=== PATIENT | male | born 1940 | race Caucasian/White ===

== ENCOUNTER 2021-02-16 23:23 | Emergency (ER) | payer MEDICARE, OTHER ==
[~2021-02-16] VITALS: Ht 175.3 cm; Wt 66.7 kg
--- NOTE | 2021-02-16 23:41 | ED General ---
General Chief Complaint: Respiratory Problems Stated Complaint: SHORT OF BREATHE History of Present Illness Date Seen by Provider: Feb 16, 2021 Time Seen by Provider: 23:37 Initial Comments 81-year-old male who comes in with a feeling of shortness of breath. Patient reports that he was laying down to go to bed and felt like he can breathe through his CPAP machine. Patient reports he was then attempted to go to sleep and felt like he Is taking slower and less shallow breaths and it scared him. He is in presented to the ER for evaluation. Upon presentation to the ER he has no symptoms. Patient has no chest pain, fever, chills, cough. No complaints of congestion. Allergies and Home Medications Allergies Coded Allergies: bee venom protein (honey bee) (Verified Allergy, Unknown, 02/16/21) Home Medications Ferrous Sulfate 325 Mg Tablet, 325 MG PO TID, (Reported) Metoprolol Tartrate 50 Mg Tablet, 50 MG PO DAILY, (Reported) Omeprazole Magnesium 10 Mg Suspdr.pkt, 20 MG PO BID, (Reported) Potassium Chloride 20 Meq Tablet.er, 20 MEQ PO UD, (Reported) Patient Home Medication List Home Medication List Reviewed: Yes Review of Systems Review of Systems Constitutional: see HPI Respiratory: see HPI Cardiovascular: no symptoms reported Gastrointestinal: no symptoms reported Genitourinary: no symptoms reported Musculoskeletal: no symptoms reported Skin: no symptoms reported Psychiatric/Neurological: No Symptoms Reported Hematologic/Lymphatic: No Symptoms Reported Immunological/Allergic: no symptoms reported Past Kmqzmit-Dbnmzj-Wcbjks Hx Past Med/Social Hx: Reviewed Nursing Past Med/Soc Hx Physical Exam Vital Signs Vital Signs - First Documented 02/16/21 23:37 Temp 36.3 Pulse 65 Resp 18 B/P (MAP) 157/93 (114) Pulse Ox 99 O2 Delivery Room Air Capillary Refill : Height, Weight, BMI Height: '" Weight: lbs. oz. 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 Norm as Tested Skin: Normal Color, Warm/Dry Progress/Results/Core Measures Suspected Sepsis SIRS Temperature: Pulse: Respiratory Rate: Laboratory Tests 02/16/21 23:30: White Blood Count 5.0 Blood Pressure / Mean: Laboratory Tests 02/16/21 23:30: Creatinine 1.22, Platelet Count 146 Results/Orders Lab Results Laboratory Tests Test 02/16/21 23:30 Range/Units White Blood Count 5.0 4.3-11.0 10^3/uL Red Blood Count 3.84 L 4.35-5.85 10^6/uL Hemoglobin 12.0 L 13.3-17.7 G/DL Hematocrit 37 L 40-54 % Mean Corpuscular Volume 96 80-99 FL Mean Corpuscular Hemoglobin 31 25-34 PG Mean Corpuscular Hemoglobin Concent 33 32-36 G/DL Red Cell Distribution Width 13.2 10.0-14.5 % Platelet Count 146 130-400 10^3/uL Mean Platelet Volume 10.0 7.4-10.4 FL Immature Granulocyte % (Auto) 0 % Neutrophils (%) (Auto) 52 42-75 % Lymphocytes (%) (Auto) 26 12-44 % Monocytes (%) (Auto) 15 H 0-12 % Eosinophils (%) (Auto) 6 0-10 % Basophils (%) (Auto) 1 0-10 % Neutrophils # (Auto) 2.6 1.8-7.8 X 10^3 Lymphocytes # (Auto) 1.3 1.0-4.0 X 10^3 Monocytes # (Auto) 0.7 0.0-1.0 X 10^3 Eosinophils # (Auto) 0.3 0.0-0.3 10^3/uL Basophils # (Auto) 0.1 0.0-0.1 10^3/uL Immature Granulocyte # (Auto) 0.0 0.0-0.1 10^3/uL Sodium Level 144 135-145 MMOL/L Potassium Level 3.8 3.6-5.0 MMOL/L Chloride Level 107 98-107 MMOL/L Carbon Dioxide Level 30 21-32 MMOL/L Anion Gap 7 5-14 MMOL/L Blood Urea Nitrogen 25 H 7-18 MG/DL Creatinine 1.22 0.60-1.30 MG/DL Estimat Glomerular Filtration Rate 57 BUN/Creatinine Ratio 20 Glucose Level 110 H 70-105 MG/DL Calcium Level 9.6 8.5-10.1 MG/DL Troponin I < 0.30 <0.30 NG/ML Pro-B-Type Natriuretic Peptide 2477.0 H <75.0 PG/ML My Orders Orders - MAYA TELLEZ DO Chest 1 View Ap/Pa Only (02/16/21 23:34) Ed Iv/Invasive Line Start (02/16/21 23:41) Ekg Tracing (02/16/21 23:41) Monitor-Rhythm Ecg Trace Only (02/16/21 23:41) Basic Metabolic Panel (02/16/21 23:41) Cbc With Automated Diff (02/16/21 23:41) Probnp Fs (02/16/21 23:41) Troponin I Fs (02/16/21 23:41) Vital Signs/I&O 02/16/21 23:37 Temp 36.3 Pulse 65 Resp 18 B/P (MAP) 157/93 (114) Pulse Ox 99 O2 Delivery Room Air Capillary Refill : Progress Note : Time: 00:20 Progress Note Patient remained symptom-free throughout his stay. States that he could breathe fine now. I will discharge patient home. He should return the ER as needed or follow-up with a primary care provider. Patient stable at ECG Initial ECG Impression Date: Feb 16, 2021 Initial ECG Impression Time: 23:28 Initial ECG Rate: 67 Comment Ventricular paced, no acute findings Diagnostic Imaging Diagonstic Imaging: Xray Plain Films/CT/US/NM/MRI: chest Comments No acute finding Reviewed: Reviewed by Me Departure Impression Primary Impression: Dyspnea Qualified Codes: R06.02 - Shortness of breath Disposition: 01 HOME, SELF-CARE Condition: Stable Departure-Patient Inst. Referrals: JOEL BURGOS MD (PCP/Family) Primary Care Physician Patient Instructions: Shortness of Breath (Dyspnea) (DC) Add. Discharge Instructions: Follow-up with your primary care provider for continuation of care Return to the ER as All discharge instructions reviewed with patient and/or family. Voiced understanding. MAYA TELLEZ DO Feb 16, 2021 23:41
[2021-02-16 23:49] LABS: HEMATOCRIT 37 % (40-54); MEAN CORPUSCULAR HEMOGLOBIN 31 PG (25-34); MEAN CORPUSCULAR HGB CONC 33 G/DL (32-36); MEAN CORPUSCULAR VOLUME 96 FL (80-99); PLATELET COUNT 146 10^3/uL (130-400)
[2021-02-16 23:50] LABS: BASOPHILS # (AUTO) 0.1 10^3/uL (0.0-0.1); BASOPHILS % (AUTO) 1 % (0-10); EOSINOPHILS # (AUTO) 0.3 10^3/uL (0.0-0.3); EOSINOPHILS % (AUTO) 6 % (0-10); LYMPHOCYTES # (AUTO) 1.3 X 10^3 (1.0-4.0); LYMPHOCYTES % (AUTO) 26 % (12-44); MONOCYTES # (AUTO) 0.7 X 10^3 (0.0-1.0); MONOCYTES % (AUTO) 15 % (0-12); NEUTROPHILS # (AUTO) 2.6 X 10^3 (1.8-7.8); NEUTROPHILS % (AUTO) 52 % (42-75)
[2021-02-16] MEDS ORDERED: METO-451 PO (23:55)
[2021-02-16] MEDS ORDERED: ATOR40TA70 (23:55)
[2021-02-16] MEDS ORDERED: OMEP10SU2 PO (23:55)
[2021-02-16] MEDS ORDERED: FURO40TA4 (23:55)
[2021-02-16] MEDS ORDERED: ASPI-999 PO (23:55)
[2021-02-16] MEDS ORDERED: FERR-84 PO (23:55)
[2021-02-16] MEDS ORDERED: POTA-51 PO (23:55)
[2021-02-16] MEDS ORDERED: WARF-48 (23:55)
[2021-02-16] MEDS ORDERED: LISI20TA26 (23:55)
[2021-02-17 00:12] LABS: CHLORIDE 107 MMOL/L (98-107); POTASSIUM 3.8 MMOL/L (3.6-5.0); SODIUM 144 MMOL/L (135-145)
[2021-02-17 00:13] LABS: BUN/CREATININE RATIO 20; CALCIUM 9.6 MG/DL (8.5-10.1); CARBON DIOXIDE 30 MMOL/L (21-32); CREATININE SERUM 1.22 MG/DL (0.60-1.30); GFR ESTIMATED 57; GLUCOSE 110 MG/DL (70-105)
[2021-02-17 00:25] VITALS: BP 145/83
--- NOTE | 2021-02-17 07:23 | Diagnostic Imaging Report ---
INDICATION: Chest pain COMPARISON STUDY: None FINDINGS: Frontal view of the chest demonstrates mild cardiomegaly with a cardiac defibrillator in place. COPD changes are present. There are no focal infiltrates. IMPRESSION: There is mild cardiomegaly and COPD. Dictated by: Dictated on workstation # [id number]
== END 2021-02-17 00:25 | disposition home or self-care (01) ==
LOC: ER FS 23:24
DX: R06.00 Dyspnea, unspecified (principal); I10 Essential (primary) hypertension; Z91.030 Bee allergy status
CPT/HCPCS: 36415; 71045; 80048; 83880; 84484; 85025; 93005; 93041

== ENCOUNTER → 2023-03-24 | Outpatient (CLI) | payer MEDICARE, OTHER ==
[~2023-03-24] MED LIST: APIX5TAB PO; ASPI-999 PO; ATOR40TA70; FERR-84 PO; FURO40TA4; LISI20TA26; METO-451 PO; OMEP10SU2 PO; POTA-51 PO; WARF-48
== END | disposition home or self-care (01) ==
LOC: PREOP 05:33
PROVIDERS: ATTEND Otolaryngology Otolaryngology/Facial Plastic Surgery
DX: Z01.818 Encounter for other preprocedural examination (principal)

== ENCOUNTER 2023-03-31 07:20 | Day surgery (SDC) | payer MEDICARE, OTHER ==
[2023-03-31] VITALS (11 sets, daily range): BP systolic 114–154; BP diastolic 77–103
[~2023-03-31] VITALS: Ht 172.7 cm; Wt 64.5 kg
[2023-03-31 08:59] LABS: BASOPHILS # (AUTO) 0.1 10^3/uL (0.0-0.1); BASOPHILS % (AUTO) 1 % (0-10); EOSINOPHILS # (AUTO) 0.2 10^3/uL (0.0-0.3); EOSINOPHILS % (AUTO) 4 % (0-10); HEMATOCRIT 39 % (40-54); HEMOGLOBIN 12.8 g/dL (13.3-17.7); LYMPHOCYTES # (AUTO) 1.1 10^3/uL (1.0-4.0); LYMPHOCYTES % (AUTO) 23 % (12-44); MEAN CORPUSCULAR HEMOGLOBIN 31 pg (25-34); MEAN CORPUSCULAR HGB CONC 33 g/dL (32-36); MEAN CORPUSCULAR VOLUME 94 fL (80-99); MEAN PLATELET VOLUME 10.2 fL (9.0-12.2); MONOCYTES # (AUTO) 0.6 10^3/uL (0.0-1.0); MONOCYTES % (AUTO) 13 % (0-12); NEUTROPHILS # (AUTO) 2.7 10^3/uL (1.8-7.8); NEUTROPHILS % (AUTO) 58 % (42-75); PLATELET COUNT 114 10^3/uL (130-400); WHITE BLOOD COUNT 4.5 10^3/uL (4.3-11.0)
[2023-03-31] MEDS ORDERED: LACTATED RINGERS 1,000 ML IV PRN (09:00)
[2023-03-31 09:04] LABS: POTASSIUM 4.2 MMOL/L (3.6-5.0)
[2023-03-31 09:05] LABS: CALCIUM 9.3 MG/DL (8.5-10.1)
[2023-03-31 09:09] LABS: CREATININE SERUM 1.1 MG/DL (0.60-1.30)
[2023-03-31] MEDS ORDERED: LIDOCAINE/EPI 1%-1:100,000 (XYLOCAINE) 20ML ONE (09:50)
[2023-03-31] MEDS ORDERED: MUPIROCIN 2% OINT 22 GM (BACTROBAN) TUBE ONE (09:50)
[2023-03-31] MEDS ORDERED: ONDANSETRON 4 MG/2 ML (SDV) Z0FRAN ONE (09:54)
[2023-03-31] MEDS ORDERED: fentaNYL INJ 100 MCG/2 ML AMP ONE (09:54)
[2023-03-31] MEDS ORDERED: proPOfol 200 MG/20 ML (DIPRIVAN) VIAL IV ONE (09:54)
[2023-03-31] MEDS ORDERED: LIDOCAINE PF 2% 5 ML (XYLOCAINE) VIAL ONE (09:54)
--- NOTE | 2023-03-31 10:12 | Progress Note-Pre Operative ---
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
--- NOTE | 2023-03-31 10:13 | Progress Note-Post Operative ---
Post-Operative Progess Note Surgeon (s)/Environment Artist (s) Surgeon LORNE JENNINGS MD Environment Artist n/a Pre-Operative Diagnosis Squamous CEll Carcinoma of Left Ear Post-Operative Diagnosis same Post-Op Procedure Note Date of Procedure: March 31, 2023 Name of Procedure Performed: Excision of Squamous Cell Carcinoma of Left EAr, Reconstruction with Local ADvancement Flap Description & Findings Description and Findings: n/a Anesthesia Type LMA Estimated Blood Loss minimal Packing none. Specimen(s) collected/removed Left Ear Lesion LOREN JENNINGS MD March 31, 2023 10:13
[2023-03-31] MEDS ORDERED: ACETAMINOPHEN 325 MG TABLET PO PRN (10:15)
[2023-03-31] MEDS ORDERED: HYDROcodone/APAP 5 MG/325 MG (LORTAB) TAB PO PRN (10:15)
[2023-03-31] MEDS ORDERED: MUPIROCIN 2% OINT 22 GM (BACTROBAN) TUBE TOP ONE (10:44)
[2023-03-31] MEDS ORDERED: LIDOCAINE/EPI 1%-1:100,000 (XYLOCAINE) 20ML INJ ONE (10:45)
[2023-03-31] MEDS ORDERED: SEVOFLURANE (ULTANE) 15 ML INHAL SOLN ONE (11:16)
[2023-03-31] MEDS ORDERED: morphine INJ 10 MG/ML 1ML (SYR OR VIAL) IVP ONE (11:30)
[2023-03-31] MEDS ORDERED: ONDANSETRON 4 MG/2 ML (SDV) Z0FRAN IVP PRN (11:30)
--- NOTE | 2023-03-31 12:30 | Anesthesia-General Post-Op ---
General Patient Condition Mental Status/LOC: Same as Preop Cardiovascular: Satisfactory Nausea/Vomiting: Absent Respiratory: Satisfactory Pain: Controlled Complications: Absent Post Op Complications Complications None Follow Up Care/Instructions Patient Instructions None needed. Anesthesia/Patient Condition Patient Condition Patient is doing well. His pacemaker/defibrillator was interrogated in PACU. He has no complaints, stable vital signs, no apparent adverse anesthesia problems. No complications reported per nursing. NASIMA MUÑIZ DO March 31, 2023 12:30
[2023-03-31] MEDS ORDERED: ACHD5005 PO (12:59)
[2023-03-31] MEDS ORDERED: CEPH500T PO (12:59)
== END 2023-03-31 13:25 | disposition home or self-care (01) ==
LOC: SDC 07:20
PROVIDERS: ATTEND Otolaryngology Otolaryngology/Facial Plastic Surgery
DX: L57.0 Actinic keratosis (principal); C44.229 Squamous cell carcinoma of skin of left ear and external auricular canal; G47.33 Obstructive sleep apnea (adult) (pediatric); Z91.199 Patient's noncompliance with other medical treatment and regimen due to unspecified reason; Z79.01 Long term (current) use of anticoagulants; Z95.810 Presence of automatic (implantable) cardiac defibrillator
CPT/HCPCS: 36415; 80048; 85025; 87081; 93005